=== PATIENT | female | born 1990 | race Caucasian/White ===

== ENCOUNTER 2023-01-22 14:21 | Outpatient (AMB) | payer OTHER, SELFPAY ==
--- NOTE | 2023-01-22 15:02 | MHC.OFFWIV ---
Intake Vital Signs 01/22/23 15:09 BP 112/78 Blood Pressure Location Lt brachial Position Sitting Pulse 88 Pulse Source Pulse Oximeter Temp 98.8 F Temp Source Temporal Artery Scan Pulse Oximetry (%) 99 Oxygen Delivery Method Room Air Intake Visit Reasons: [employer]/pos covid test [phone] Intake Note: Patient here for positive covid test and would like to confirm. Patient Tobacco Use Status: Never used Tobacco Allergies No Known Allergies Allergy (Verified 01/23/23 06:10) Medication List - Last Reconciled 01/23/23 by Hector Baron MD No Known Home Meds Do you need a note to return to daycare/school/sports/work: No HPI [employer]/pos covid test [phone] HPI Details 32-year-old female presents to the office for a sick visit. Patient is visiting [place] from [place]. Developed symptoms of a cold and sinus congestion last night. Home test was positive for COVID. She is living in a camper with 2 young children, and mom. [facility] Social History Patient Tobacco Use Status: Never used Tobacco Physical Exam Vital Signs: Last Vital Signs Temp 98.8 F 01/22/23 15:09 Pulse 88 01/22/23 15:09 BP 112/78 01/22/23 15:09 Pulse Ox 99 01/22/23 15:09 Oxygen Delivery Method Room Air 01/22/23 15:09 Const General: cooperative and healthy appearing Nutritional Appearance: well nourished Orientation/consciousness: patient oriented x3 Limitations: no limitations HEENT Head: Yes normal to inspection Eyes General: appearance normal, both eyes and all related structures Neck Neck: Yes normal visual inspection Chest Chest palpation & inspection: normal palpation of entire chest wall Resp Effort & Inspection: normal respiratory effort Neuro General: patient oriented x3 Assessment & Plan Assessment & Plan (1) Upper respiratory tract infection: Code(s): J06.9 - Acute upper respiratory infection, unspecified Plan: A PCR test has been done to confirm the diagnosis. Patient was informed that she mostly likely has COVID as her home kit was positive. I encouraged her to isolate herself for 5 days. Symptomatic treatment with Tylenol. No prescription medications necessary. Orders: Orders SARS-CoV2/FLU/RSV 01/22/23 R43.9 - Unspecified disturbances of smell and taste Coding Level of Care Code New Pt Level 3 (40332) Diagnoses Upper respiratory tract infection J06.9
[2023-01-22 15:09] VITALS: BP 112/78; PULSE 88; TEMP 37.1; O2SAT 99
[2023-01-23 13:03] LABS: Influenza A PCR NEGATIVE (Negative); Influenza B PCR NEGATIVE (Negative); Resp Syncy Virus RNA Qual PCR NEGATIVE (Negative); SARS COV2 PCR INHOUSE POSITIVE (Negative)
== END 2023-01-22 15:52 | disposition home or self-care (01) ==
PROVIDERS: Visit Provider Internal Medicine
DX: J06.9 Acute upper respiratory infection, unspecified (principal)
CPT/HCPCS: 99203